=== PATIENT | female | born 1945 | race Caucasian/White ===

== ENCOUNTER → 2016-10-08 | Outpatient (CLI) | payer MEDICARE, BC | END | disposition home or self-care (01) | LOC: LABWHC1 08:23 | PROVIDERS: ATTEND Family Medicine | DX: E03.9 Hypothyroidism, unspecified (principal) | CPT/HCPCS: 36415; 84443 ==

== ENCOUNTER → 2017-07-30 | Outpatient (CLI) | payer MEDICARE, BC ==
--- NOTE | 2017-07-30 10:30 | FL ---
EXAMINATION TYPE: FL UGI air DATE OF EXAM: 07/30/2017 9:55 AM COMPARISON: NONE CLINICAL HISTORY: R10.13 epigastric pain Preliminary view of the abdomen reveals a normal bowel gas pattern. IVC filter is noted to be in plac e. CHART CHANGER shunt tubing is noted. Mild degenerative changes are noted of the thoracolumbar spine. Upper GI examination was performed according to the air contrast technique. Barium and effervescent crystal was swallowed without difficulty or delay. Esophageal peristalsis and motility are within normal limits. There is no evidence for esophagitis, intraluminal mass. Ther e is mild gastroesophageal reflux with small sliding-type hiatal hernia. The stomach has a normal bindu earance in terms of its size, shape and location. No gastric filling defects or ulcer craters are se en. The duodenal bulb and sweep are also free of intraluminal lesion or ulcer crater. IMPRESSION: There is mild gastroesophageal reflux with small sliding-type hiatal hernia.
--- NOTE | 2017-07-30 10:32 | US ---
EXAMINATION TYPE: US abdomen complete DATE OF EXAM: 07/30/2017 COMPARISON: Same day upper GI study CLINICAL HISTORY: R10.13 epigastric pain. Patient states she had a brain aneurism and has a shunt from her brain down through her abdomen. Susan ent poor historian about different procedures she has had done. EXAM MEASUREMENTS: Liver Length: 13.8 cm Gallbladder Wall: 0.1 cm CBD: 0.4 cm Spleen: Surgically absent Right Kidney: 8.8 x 4.0 x 4.7 cm Left Kidney: 10.4 x 4.6 x 5.1 cm Pancreas: Tail obscured by overlying bowel gas Liver: wnl Gallbladder: tortuous, with no stones or sludge identified Evidence for sonographic Garcia's sign: no CBD: wnl Spleen: surgically absent Right Kidney: measures slightly smaller Left Kidney: No hydronephrosis or masses seen Upper IVC: possible IVC filter with good flow surrounding Abd Aorta: there appears to be a aortic graft, all portions appear wnl The liver is homogenous. The visualized abdominal aorta are within normal limits. Distal portion may have graft in place. Intrahepatic IVC shows curvilinear density consistent with known IVC filter. Go od blood flow at site of filter is noted on color images. There is no evidence of cholelithiasis. C ommon bile duct is unremarkable. The visualized portions of the pancreas are homogenous. The spleen is nonvisualized suspected surgically absent. Kidneys are symmetric and free of hydronephrosis. No renal lesions are seen. IMPRESSION: No suspicious finding is seen to account for patient's symptoms.
== END | disposition home or self-care (01) ==
LOC: RADUSMAIN 07:59
PROVIDERS: ATTEND Family Medicine
DX: K44.9 Diaphragmatic hernia without obstruction or gangrene (principal); K21.9 Gastro-esophageal reflux disease without esophagitis
CPT/HCPCS: 74246; 76700

== ENCOUNTER → 2018-02-08 | Outpatient (CLI) | payer MEDICARE, BC ==
[2018-02-08 17:00] LABS: LDL Cholesterol,Calculated 145.2 mg/dL (0.0-131.0); VLDL Calculation 20.8 mg/dL (5.00-40.00)
== END | disposition home or self-care (01) ==
LOC: LABWHC1 08:43
PROVIDERS: ATTEND Nurse Practitioner Family
DX: E03.9 Hypothyroidism, unspecified (principal); Z13.220 Encounter for screening for lipoid disorders
CPT/HCPCS: 36415; 80061; 84443

== ENCOUNTER → 2018-04-13 | Outpatient (CLI) | payer MEDICARE, BC ==
--- NOTE | 2018-04-14 07:19 | US ---
EXAMINATION TYPE: US thyroid st tissue head/neck DATE OF EXAM: 04/13/2018 COMPARISON: Thyroid ultrasound August 30, 2014 CLINICAL HISTORY: E03.9 Hyperthyroidism, E04.1 Thyroid Nodule. Hypothyroidism per patient. On meds. No hx of biopsy GLAND SIZE: Right Lobe: 2.8 x 1.0 x 0.7 cm Overall Parenchyma: heterogenous Left Lobe: 2.3 x 1.1 x 0.7 cm Overall Parenchyma: heterogeneous Isthmus Thickness: 0.1 cm NODULES RIGHT: # of nodules measured on right: 0 LEFT: # of nodules measured on left: 0 ISTHMUS: # of nodules measured in the isthmus: 0 Bilateral neck scanned. Left lateral neck lymph node appearing lesion = 1.5 x 0.6 x 0.4 cm. There is redemonstration of heterogeneous small size thyroid without discrete nodule. Technologist in cidentally edmonds benign-appearing subcentimeter lymph node in the left neck. IMPRESSION: Overall stable findings, small size heterogeneous thyroid gland without discrete nodule.
== END | disposition home or self-care (01) ==
LOC: RADUSWWP 16:50
PROVIDERS: ATTEND Family Medicine
DX: E04.1 Nontoxic single thyroid nodule (principal); E03.9 Hypothyroidism, unspecified
CPT/HCPCS: 76536

== ENCOUNTER → 2018-05-09 | Outpatient (CLI) | payer MEDICARE, BC ==
--- NOTE | 2018-05-09 15:18 | BD ---
EXAMINATION TYPE: Axial Bone Density DATE OF EXAM: 05/09/2018 Comparison: Prior DEXA bone scan 2013. CLINICAL HISTORY: Postmenopausal female Height: 63.5 Weight: 128 FRAX RISK QUESTIONS: Alcohol (3 or more units per day): no Family History (Parent hip fracture): no Glucocorticoids (More than 3mos): no (Ex: prednisone, prednisolone, methylprednisolone, dexamethasone, and hydrocortisone). History of Fracture in Adulthood: yes Secondary Osteoporosis: 1. Type 1 Diabetes: no 2. Hyperthyroidism: unsure 3. Menopause before 45: no, 48 4. Malnutrition: no 5. Chronic liver disease: no Rheumatoid Arthritis: no Current Tobacco Use: no RISK FACTORS HISTORY OF: Family History of Osteoporosis: no, sister had osteopenia Active: yes Diet low in dairy products/other sources of calcium: no Postmenopausal woman: yes Take estrogen and/or progesterone medications: no Lost more than 2 inches in height since high school: states was about 5ft 5 & 1/2 inches at one time Frequent falls: no Poor Health: no Hyperparathyroidism: no Adrenal Insufficiency: no MEDICATIONS: Thyroid Medications: yes Which medication: Levoxyl How Long: over 10 years Osteoporosis Medications: not now Which medication: Prolia How Long: one dose Additional Medications: calcium Additional History: arthritis; shunt from head to abdomen; Meggan's EXAM MEASUREMENTS: Bone mineral densitometry was performed using the [employer] System. 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 Bone density decreased from prior . There remains increased fracture risk and therapy is usually indicated based on age. Re-Screen 1-2 years. NOTE: T-SCORE=SD OF THE YOUNG ADULT MEAN.
== END | disposition home or self-care (01) ==
LOC: RADBDWWP 13:18
PROVIDERS: ATTEND Family Medicine
DX: M81.0 Age-related osteoporosis without current pathological fracture (principal)
CPT/HCPCS: 77080

== ENCOUNTER → 2018-07-14 | Outpatient (CLI) | payer MEDICARE, BC | END | disposition home or self-care (01) | LOC: LABWHC1 10:20 | PROVIDERS: ATTEND Family Medicine | DX: E03.9 Hypothyroidism, unspecified (principal) | CPT/HCPCS: 36415; 84443 ==

== ENCOUNTER → 2018-12-21 | Outpatient (CLI) | payer MEDICARE, BC ==
--- NOTE | 2018-12-22 08:43 | MM ---
Reason for exam: screening (asymptomatic). Last mammogram was performed 3 years and 8 months ago. History: Patient is postmenopausal. Family history of breast cancer in sister at age 73. Physical Findings: A clinical breast exam by your physician is recommended on an annual basis and results should be correlated with mammographic findings. MG 3D Screening Mammo W/Cad Bilateral CC and MLO view(s) were taken. Prior study comparison: April 22, 2015, bilateral MG screening mammo w CAD. September 08, 2013, bilateral MG screening mammo w CAD. There are scattered fibroglandular densities. There is no discrete abnormality. No significant changes when compared with prior studies. ASSESSMENT: Negative, BI-RAD 1 RECOMMENDATION: Routine screening mammogram of both breasts in 1 year.
== END | disposition home or self-care (01) ==
LOC: RADMAMWWP 07:29
PROVIDERS: ATTEND Family Medicine
DX: Z12.31 Encounter for screening mammogram for malignant neoplasm of breast (principal)
CPT/HCPCS: 77063; 77067

== ENCOUNTER → 2019-01-03 | Outpatient (CLI) | payer MEDICARE, BC ==
--- NOTE | 2019-01-03 13:24 | CT ---
EXAMINATION TYPE: CT angio head neck DATE OF EXAM: 01/03/2019 COMPARISON: HISTORY: Subarachnoid hemorrhage CT DLP: 232 mGycm CONTRAST: Performed with IV Contrast, patient injected with 65 mL of Isovue 370. Combination Contrast CTA cervical carotids and [place] CTA cervical carotids with 3-D recons truction Contrast CTA of the cervical carotids was performed 3-D reconstruction imaging obtained at a separate workstation. Right carotid system: Mild plaque is seen of the right common carotid artery. There is moderate plaq ue also noted at the carotid bulb and proximal ICA. Estimated 40% diameter reduction right carotid s ystem. ECA is patent. Right vertebral artery appears unremarkable. Left carotid system: Mild plaque is seen of the left common carotid artery. There is moderate plaque also noted at the carotid bulb and proximal ICA. 50% diameter reduction noted ECA is patent. Left vertebral artery appears unremarkable. IMPRESSION: 1. 50% stenosis suspected left ICA proximally. 40% stenosis right ICA. CTA [place] with 3-D reconstruction Contrast CTA of the [place] was performed 3-D reconstruction imaging obtained at a separate workstation. Vertebrobasilar system as well as intracranial portions of the internal carotid arteries and their ma ozzie tributaries are patent. Small 3 mm aneurysm difficult to exclude right MCA. No additional aneurys mal dilatation identified. Please note MRI provides greater sensitivity and specificity. Visualized brain demonstrates a right-sided shunt catheter with the distal tip within the left lateral ventricle . Contrast limits evaluation for possible subarachnoid hemorrhage. IMPRESSION: 1. I cannot exclude small right-sided MCA aneurysm measuring approximately 3 mm.
== END | disposition home or self-care (01) ==
LOC: RADCTMAIN 07:59
PROVIDERS: ATTEND Neurological Surgery
DX: I60.9 Nontraumatic subarachnoid hemorrhage, unspecified (principal)
CPT/HCPCS: 82565; 84520; 70496; 70498; 36415; Q9967

== ENCOUNTER → 2019-05-25 | Outpatient (CLI) | payer MEDICARE, BC ==
--- NOTE | 2019-05-25 09:28 | US ---
EXAMINATION TYPE: US abdomen complete DATE OF EXAM: 05/25/2019 COMPARISON: US 07/30/2017 CLINICAL HISTORY: 73-year-old female R10.811 Right upper quadrant abdominal tenderness. Intermittent RUQ pain x couple months, history of spleen removed, patient states she believes she has a filter in her IVC. TECHNIQUE: Multiple sonographic images of the abdomen are obtained. FINDINGS: EXAM MEASUREMENTS: Liver Length: 12.2 cm Gallbladder Wall: 0.1 cm CBD: 0.5 cm Right Kidney: 9.0 x 3.4 x 3.9 cm Left Kidney: 9.8 x 4.6 x 5.1 cm Pancreas: No gross abnormality. Liver: Normal size. Overall homogeneous appearance without focal lesion. Gallbladder: No abnormal distention, wall thickening, pericholecystic fluid, or shadowing calculi. Evidence for sonographic Garcia's sign: no CBD: visualized portions wnl, limited by overlying bowel gas Spleen: surgically absent Right Kidney: wnl Left Kidney: wnl Upper IVC: IVC filter seen Abd Aorta: wnl IMPRESSION: 1. Status post splenectomy. 2. IVC filter visualized. 3. Otherwise, unremarkable sonographic examination of the abdomen.
--- NOTE | 2019-05-25 10:45 | FL ---
EXAMINATION: Upper GI examination DATE: 05/25/2019 CLINICAL INDICATION: 73-year-old female with epigastric and right upper quadrant pain/tenderness. COMPARISON: 07/30/2017 Total Fluoroscopy Time: 2 minutes 3 seconds Total images: 31 FINDINGS: The esophagus has a normal course, caliber, and mucosa. Mild tertiary peristaltic waves are demonstra fabrizio and while the patient is prone, there is an initial delay in clearance from the esophagus. Subseq uent secondary waves managed to clear the esophagus adequately. There is a tiny sliding hiatal hernia. Gastroesophageal reflux could not be elicited during the cours e of the exam. The stomach and duodenum are free of any persistent filling defect and demonstrate a normal mucosal p attern. IVC filter and what appears to be a COMPONENT ASSEMBLER SUPERVISOR shunt catheter are demonstrated. IMPRESSION: Tiny sliding hiatal hernia. Only mild disordered tertiary peristaltic contractions in the esophagus c ompatible with age-related change. No stricture, suspicious filling defect, or mucosal lesion seen wi thin the esophagus, stomach, or duodenum.
== END | disposition home or self-care (01) ==
LOC: RADUSWWP 07:02
PROVIDERS: ATTEND Family Medicine
DX: K44.9 Diaphragmatic hernia without obstruction or gangrene (principal); R10.13 Epigastric pain; Z90.81 Acquired absence of spleen; Z95.828 Presence of other vascular implants and grafts
CPT/HCPCS: 74246; 76700

== ENCOUNTER → 2020-02-09 | Outpatient (CLI) | payer MEDICARE, BC ==
--- NOTE | 2020-02-11 23:00 | CT ---
EXAMINATION TYPE: CT angio head neck DATE OF EXAM: 02/09/2020 HISTORY: Nontraumatic subarachnoid hemorrhage, shunt F/U COMPARISON: CTA head and neck 01/03/2019 CT DLP: 264.2 mGycm. Automated Exposure Control for Dose Reduction was Utilized. TECHNIQUE: CTA scan of the neck is performed with IV Contrast, patient injected with 65 mL of Isovue 370, axial images are obtained, coronal and sagittal reformatted images are reviewed. Three-D recons tructed images are created on an independent workstation and reviewed. Stenosis calculated utilizing NASCET criteria. FINDINGS: Carotid/Vascular Structures: Left vertebral artery directly off the aortic arch. Proximal left subcla vian artery stenosis approaches 50%. No hemodynamically significant stenosis of the bilateral carotid arteries. The left distal internal carotid artery demonstrates a medial 6 x 5 x 9 mm (AP, transverse , and craniocaudal) aneurysm with internal thrombus (4:63-67). The right vertebral artery is diminuti ve. Cervical of [place]: Vertebral basilar system is left dominant. Posterior cerebral vasculature is unre markable. The previously questioned aneurysm of the right MCA is not visualized on current exam. No e vidence of aneurysm, hemodynamically significant stenosis, or occlusion of the arteries of the head. Contrast limits evaluation for possible subarachnoid hemorrhage. Other: Right-sided ventricular peritoneal shunt catheter with distal tip in the left lateral ventricl e. No ventriculomegaly. Paranasal sinuses and mastoid air cells are clear. IMPRESSION: 1. Right-sided ventriculoperitoneal shunt catheter with distal tip in the left lateral ventricle. No ventriculomegaly. 2. No evidence of aneurysm, hemodynamically significant stenosis, or occlusion of the [place] of [place] s. 3. 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 Retrospecti vely this finding is likely unchanged versus 01/03/2019. 4. No hemodynamically significant stenosis of the carotid arteries. 5. Stenosis of the left proximal subclavian artery approaches 50%.
== END | disposition home or self-care (01) ==
LOC: RADCTMAIN 13:56
PROVIDERS: ATTEND Neurological Surgery
DX: I65.02 Occlusion and stenosis of left vertebral artery (principal); I67.1 Cerebral aneurysm, nonruptured; Z98.2 Presence of cerebrospinal fluid drainage device
CPT/HCPCS: 82565; 84520; 70496; 70498; 36415; Q9967

== ENCOUNTER → 2020-04-09 | Outpatient (CLI) | payer MEDICARE, BC ==
--- NOTE | 2020-04-10 15:01 | MM ---
Reason for exam: screening (asymptomatic). Last mammogram was performed 1 year and 4 months ago. History: Patient is postmenopausal. Family history of breast cancer in sister at age 73. Excisional biopsy of the right breast, 1975. Took estrogen beginning at age 48. Took progesterone beginning at age 48. Physical Findings: A clinical breast exam by your physician is recommended on an annual basis and results should be correlated with mammographic findings. MG 3D Screening Mammo W/Cad Bilateral CC and MLO view(s) were taken. Prior study comparison: December 21, 2018, bilateral MG 3d screening mammo w/cad. April 22, 2015, bilateral MG screening mammo w CAD. There are scattered fibroglandular densities. There is no discrete abnormality. ASSESSMENT: Negative, BI-RAD 1 RECOMMENDATION: Routine screening mammogram of both breasts in 1 year.
== END | disposition home or self-care (01) ==
LOC: RADMAMWWP 15:14
PROVIDERS: ATTEND Family Medicine
DX: Z12.31 Encounter for screening mammogram for malignant neoplasm of breast (principal)
CPT/HCPCS: 77063; 77067

== ENCOUNTER → 2020-05-16 | Outpatient (CLI) | payer MEDICARE, BC ==
[2020-05-16 14:46] LABS: African American GFR (CKD) 73.5 (60.0-200.0); Albumin 4.7 g/dL (3.80-4.90); Albumin/Globulin Ratio 2.35 (1.60-3.17); Anion Gap 8.1 mmol/L (4.00-12.00); BUN/Creat Ratio 18.89 Ratio (12.00-20.00); Calcium 9.3 mg/dL (8.7-10.3); Carbon Dioxide 27.9 mmol/L (21.6-31.8); Chol/HDL Ratio 3.81; LDL Cholesterol,Calculated 126.8 mg/dL (0.0-131.0); Non-African American GFR(CKD) 63.4 (60.0-200.0); Potassium 4.9 mmol/L (3.5-5.5); Total Bilirubin 0.2 mg/dL (0.2-1.2); Total Protein 6.7 g/dL (6.2-8.2); VLDL Calculation 25.2 mg/dL (5.00-40.00)
[2020-05-16 14:50] LABS: Basophils # (A) 0.13 X 10*3/uL (0.00-0.10); Basophils % (A) 1.6 %; Eosinophils % (A) 5.1 %; HCT 41.2 % (37.2-46.3); HGB 13.1 g/dL (12.0-15.0); Lymphocytes # (A) 2.35 X 10*3/uL (0.90-5.00); Lymphocytes % (A) 29.7 %; MCH 32.8 pg (27.0-32.0); MCHC 31.8 g/dL (32.0-37.0); Mean Platelet Volume 11.6 fL (9.5-12.2); Monocytes # (A) 0.88 X 10*3/uL (0.20-1.00); Monocytes % (A) 11.1 %; Neutrophils # (A) 4.15 X 10*3/uL (1.80-7.70); Neutrophils % (A) 52.4 %; Platelet Count 314 X 10*3/uL (140-440); RDW 12.9 % (11.5-14.5); WBC 7.92 X 10*3/uL (4.50-10.00)
== END | disposition home or self-care (01) ==
LOC: LABWHC1 09:23
PROVIDERS: ATTEND Family Medicine
DX: E03.9 Hypothyroidism, unspecified (principal); E78.2 Mixed hyperlipidemia; R53.83 Other fatigue
CPT/HCPCS: 36415; 80053; 80061; 84443; 85025

== ENCOUNTER 2020-06-03 16:35 | Emergency (ER) | payer MEDICARE, BC ==
[2020-06-03 16:40] VITALS: BP 134/68; PULSE 93; RESP 18; TEMP 98.9
[2020-06-03] MEDS ORDERED: HYDROcodone/APAP 5-325MG 1 EACH TAB PO STA (17:00)
--- NOTE | 2020-06-03 17:19 | ED ---
General Adult HPI - General Chief complaint: Back Pain/Injury Stated complaint: fall, rib pain Time Seen by Provider: 06/03/20 16:47 Source: patient Mode of arrival: ambulatory Limitations: no limitations - History of Present Illness Initial comments: Patient is a 74-year-old female presenting to the emergency Department with complaints of right rib pain after she fell and hit a chair at approximately 10:30 this morning. Patient states she was standing on a wood chair when her foot slipped and she fell hitting the right side of her ribs on the front part of the wood chair. In having some increased pain in the right ribs, increases with bending over or twisting. She states she tried some Tylenol at home without any changes. She denies any trouble breathing. She denies hitting her head, she is not on blood thinners. She has no further complaints at this time. Upon arrival to the ER, her vitals are stable. - Related Data Previous Rx's Medication Instructions Recorded HYDROcodone/APAP 5-325MG [[place] 1 tab PO Q6HR PRN 3 Days #12 tab 06/03/20 5-325] Allergies Allergy/AdvReac Type Severity Reaction Status Date / Time latex AdvReac Itching Verified 06/03/20 17:15 simvastatin [From Zocor] AdvReac Unknown Verified 06/03/20 17:15 tramadol AdvReac Nausea & Verified 06/03/20 17:15 Vomiting Review of Systems ROS Statement: Those systems with pertinent positive or pertinent negative responses have been documented in the HPI. ROS Other: All systems not noted in ROS Statement are negative. Past Medical History History of Any Multi-Drug Resistant Organisms: None Reported Additional Past Surgical History / Comment(s): 2016 brain aneurysm Smoking Status: Never smoker Past Alcohol Use History: None Reported Past Drug Use History: None Reported General Exam - General Exam Comments Initial Comments: GENERAL: Patient is well-developed and well-nourished. Patient is nontoxic and in no acute distress. HEAD: Atraumatic, normocephalic. EYES: Pupils equal round and reactive to light, extraocular movements intact, sclera anicteric, conjunctiva are normal. Eyelids were unremarkable. ENT: TMs normal, nares patent, oropharynx clear without exudates. Moist mucous membranes. NECK: Normal range of motion, supple without lymphadenopathy or JVD. LUNGS: Unlabored respirations. Breath sounds clear to auscultation bilaterally and equal. No wheezes rales or rhonchi. HEART: Regular rate and rhythm without murmurs, rubs or gallops. ABDOMEN: Soft, nontender, normoactive bowel sounds. No guarding, no rebound. No masses appreciated. : Deferred MUSCULOSKELETAL: Normal extremities with adequate strength and normal range of motion, no pitting or edema. No clubbing or cyanosis. Patient has pain with palpation of the lateral to anterior right middle ribs, there is some mild bruising present underneath the right breast. NEUROLOGICAL: Patient is alert and oriented x 3. Motor and sensory are also intact. Cranial nerves II through XII grossly intact. Symmetrical smile. Normal speech, normal gait. PSYCH: Normal mood, normal affect. SKIN: Warm, Dry, normal turgor, no rashes or lesions noted. Limitations: no limitations Course Vital Signs 06/03/20 16:36 Temperature 98.9 F Pulse Rate 93 Respiratory 18 Rate Blood Pressure 134/68 O2 Sat by Pulse 95 Oximetry Medical Decision Making - Medical Decision Making Patient is a 74-year-old female here for right rib pain after she slipped off a wood chair and hit her right ribs on the side of the chair. There was no other injuries from this fall, she did not hit her head. X-rays of the chest and right-sided the ribs show no acute fractures dislocations, feeling that could be a small fracture line on the 7th or 8th anterior rib. Regardless, I discussed with patient and deep breathing about 5 times each hour while she was awake to prevent pneumonia. I will give her a prescription for [place] for pain control. I recommended ice to the areas well. Patient is stable for discharge. Patient is in agreement with this plan of care. Return parameters were discussed with the patient and they verbalized understanding. Case discussed with Dr. Beach. Disposition Clinical Impression: Contusion of rib on right side Disposition: HOME SELF-CARE Condition: Stable Instructions (If sedation given, give patient instructions): Rib Contusion (ED) Additional Instructions: Please return to the Emergency Department if symptoms worsen or any other concerns. Recommend deep breathing about 5 breaths each hour while you're awake to help prevent pneumonia. May use heat and/or ice to the area, Tylenol or Motrin for pain control. May take the [place] for more severe pain. Follow-up with your physician in 1-3 days. Prescriptions: HYDROcodone/APAP 5-325MG [[place] 5-325] 1 tab PO Q6HR PRN 3 Days #12 tab PRN Reason: Pain Is patient prescribed a controlled substance at d/c from ED?: Yes When asked, does pt state using other controlled substances?: No If prescribed controlled substance>3 days was MAPS reviewed?: Prescribed <3 Days If opioid is for acute pain is fill amount 7 days or less?: Yes If Rx opioid, was Start Talking consent form obtained?: Yes Referrals: Jessica Chaparro DO [Primary Care Provider] - 1-2 days
--- NOTE | 2020-06-03 18:13 | XR ---
EXAMINATION TYPE: XR ribs RT w pa chest xray DATE OF EXAM: 06/03/2020 COMPARISON: NONE HISTORY: Fall. Chest pain. TECHNIQUE: 5 views FINDINGS: Heart and mediastinum are within normal limits. There is plate with screws fixing the proxi mal left humerus. There is ventriculoperitoneal shunt catheter noted. There is inferior vena cava dimple ter. Lungs are clear of consolidation. There is no heart failure. There is no pleural effusion or pne umothorax. I see no evidence of a rib fracture. IMPRESSION: Negative right rib exam. No fracture seen. No active cardiopulmonary disease.
== END 2020-06-03 18:36 | disposition home or self-care (01) ==
LOC: EC 16:35
DX: S20.211A Contusion of right front wall of thorax, initial encounter (principal); W01.190A Fall on same level from slipping, tripping and stumbling with subsequent striking against furniture, initial encounter
CPT/HCPCS: 77080; 99283

== ENCOUNTER → 2020-06-03 | Outpatient (CLI) | payer MEDICARE, BC ==
--- NOTE | 2020-06-03 19:28 | BD ---
EXAMINATION TYPE: Axial Bone Density DATE OF EXAM: 06/03/2020 COMPARISON: 05/09/2018 CLINICAL HISTORY: Postmenopausal screening Height: 63 IN Weight: 140 LBS RISK FACTORS HISTORY OF: Active: YES Diet low in dairy products/other sources of calcium: YES Postmenopausal woman: AGE 48 Take estrogen and/or progesterone medications: NOT NOW How long: TOOK FOR 10 YEARS Lost more than 2 inches in height since high school: YES 04/06" MEDICATIONS: Thyroid Medications: YES Which medication: LEVOXYL How Lon+ YEARS Osteoporosis Medications: NOT NOW Which medication: PROLIA How Long: DID 1 TIME Additional Medications: CALCIUM, VIT D, LEVOXYL, PRAVASTATIN, EXAM MEASUREMENTS: Bone mineral densitometry was performed using the [employer] System. Bone mineral density as measured about the Lumbar spine is: ----- L1-L4(G/cm2): 1.114 T Score Values are as follows: ----- L2: -0.8 ----- L3: -0.2 ----- L4: 0.2 ----- L1-L4: -0.5 Bone mineral density has: Decreased -2.5% since study of: 05/09/2018 Bone mineral density about the R hip (g/cm2): 0.671 Bone mineral density about the L hip (g/cm2): 0.684 T Score values are as follows: -----R Neck: -2.6 -----L Neck: -2.5 -----R Total: -3.2 -----L Total: -3.1 Bone mineral density has: Decreased -1.9% since study of: 05/09/2018 IMPRESSION: Osteoporosis (T Score less than -2.5). There is increased fracture risk and therapy is usually indicated based on age. Re-Screen 1-2 years. NOTE: T-SCORE=SD OF THE YOUNG ADULT MEAN.
== END ==
LOC: RADBDWWP 16:00
PROVIDERS: ATTEND Family Medicine
DX: M81.0 Age-related osteoporosis without current pathological fracture (principal); Z78.0 Asymptomatic menopausal state
CPT/HCPCS: 77080

== ENCOUNTER → 2020-12-04 | Outpatient (CLI) | payer MEDICARE, BC ==
--- NOTE | 2020-12-04 15:54 | CT ---
EXAMINATION TYPE: CT brain wo con DATE OF EXAM: 12/04/2020 COMPARISON: None at this location INDICATION: Patient complains of lumps behind left ear. Headache. DLP: 1029.9 mGycm, Automated exposure control for dose reduction was used. CONTRAST: None CT of the brain is performed utilizing 3 mm thick sections through the posterior fossa and 3 mm thick sections through the remaining calvarium. Study is performed within 24 hours of arrival to the hosp ital. No abnormal hyperdensity is present to suggest an acute intracranial hemorrhage. No mass lesion is evident. Beam hardening artifact from coiling in the right foramen magnum is presen t. No acute infarcts are evident. Chronic appearing periventricular white matter hypodensity is present, likely on the basis of chronic white matter ischemic changes. There is a shunt catheter present with the tip in the left lateral ventricle region. This exits on th e right posterior parietal region. No ventricular dilatation or temporal horn dilatation is evident. No hydrocephalus is evident. No suspicious nodules or posterior to the left auricular region. Ventricles and sulci are appropriate for the patient age. Paranasal sinuses and mastoid air cells within the [id number] are clear. IMPRESSIONS: 1. No hydrocephalus. 2. Chronic appearing periventricular white matter changes are present, greater on the right.
== END | disposition home or self-care (01) ==
LOC: RADCTMAIN 11:54
PROVIDERS: ATTEND Neurological Surgery
DX: R93.0 Abnormal findings on diagnostic imaging of skull and head, not elsewhere classified (principal)
CPT/HCPCS: 70450

== ENCOUNTER → 2021-03-13 | Outpatient (CLI) | payer MEDICARE, BC ==
--- NOTE | 2021-03-14 12:01 | CT ---
EXAMINATION TYPE: CT brain wo con DATE OF EXAM: 03/14/2021 COMPARISON: 12/04/2020 HISTORY: follow up subarachnoid hemorrhage CT DLP: [address] of the brain was performed. The ventricles, basal cisterns and sulci overlying the cerebral convexities demonstrate mild enlargem ent. Right-sided shunt catheter is unchanged in position. No hydrocephalus seen. There is no evidence for intracranial hemorrhage or sulcal effacement. There is decreased attenuation about the periventricular white matter and deep white matter of both c erebral hemispheres, compatible with chronic small vessel ischemia. Differential diagnosis does inclu de demyelination. No mass effects are seen.No midline shift. Osseous calvarium is intact. If symptoms persist consider MRI. IMPRESSION: 1. Age related atrophic and chronic small vessel ischemic change without acute intracranial process s een at this time.
--- NOTE | 2021-03-14 12:13 | CT ---
EXAMINATION TYPE: CT angio head neck DATE OF EXAM: 03/14/2021 COMPARISON: 02/09/2020 HISTORY: follow up subarachnoid hemorrage CT DLP: 257.1 mGycm CONTRAST: Performed with IV Contrast, patient injected with 65 mL of Isovue 370. Combination Contrast CTA cervical carotids and [place] of [place] CTA cervical carotids with 3-D recons truction Contrast CTA of the cervical carotids was performed 3-D reconstruction imaging obtained at a separate workstation. Right carotid system: Mild plaque is seen of the right common carotid artery. There is mild plaque a lso noted at the carotid bulb and proximal ICA. No significant diameter reduction. ECA is patent. Right vertebral artery appears unremarkable. Left carotid system: Mild plaque is seen of the left common carotid artery. There is moderate calcif ied plaque also noted at the carotid bulb and proximal ICA. No significant diameter reduction. 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 ECA is patent. Left vertebral artery appears unremarkable. IMPRESSION: 1. No significant diameter reduction to account for the patient's symptoms. CTA [place] with 3-D reconstruction Contrast CTA of the [place] was performed 3-D reconstruction imaging obtained at a separate workstation. Vertebrobasilar system as well as intracranial portions of the internal carotid arteries and their ma ozzie tributaries are patent. 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 Please note MRI provides greater sensitivity and specificity. Visualized brain appears grossly unremarkable. IMPRESSION: 1. 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 NASCET criteria was used in interpretation of this exam?
== END | disposition home or self-care (01) ==
LOC: RADCTMAIN 17:31
PROVIDERS: ATTEND Neurological Surgery
DX: I60.9 Nontraumatic subarachnoid hemorrhage, unspecified (principal); G91.9 Hydrocephalus, unspecified; Z98.2 Presence of cerebrospinal fluid drainage device
CPT/HCPCS: 36415; 70450; 70496; 70498; 82565; 84520

== ENCOUNTER → 2021-06-03 | Outpatient (CLI) | payer MEDICARE, OTHER ==
[2021-06-03 14:40] LABS: Basophils # (A) 0.12 X 10*3/uL (0.00-0.10); Basophils % (A) 1.2 %; Eosinophils # (A) 0.42 X 10*3/uL (0.04-0.35); Eosinophils % (A) 4.3 %; HCT 42.7 % (37.2-46.3); HGB 13.4 g/dL (12.0-15.0); Immature Grans, Automated 0.2 %; Lymphocytes # (A) 2.56 X 10*3/uL (0.90-5.00); Lymphocytes % (A) 26.5 %; MCH 32.7 pg (27.0-32.0); MCHC 31.4 g/dL (32.0-37.0); MCV 104.1 fL (80.0-97.0); Mean Platelet Volume 11.9 fL (9.5-12.2); Monocytes # (A) 0.94 X 10*3/uL (0.20-1.00); Monocytes % (A) 9.7 %; NRBC Per 100 WBC 0 /100 WBCS (0.0-0.0); Neutrophils # (A) 5.61 X 10*3/uL (1.80-7.70); Neutrophils % (A) 58.1 %; Platelet Count 278 X 10*3/uL (140-440); RDW 13.3 % (11.5-14.5); WBC 9.67 X 10*3/uL (4.50-10.00)
[2021-06-03 16:41] LABS: ALT 16 U/L (8-44); AST 18 U/L (13-35); African American GFR (CKD) 65.1 (60.0-200.0); Albumin 4.8 g/dL (3.8-4.9); Albumin/Globulin Ratio 1.96 (1.60-3.17); Alkaline Phosphatase 73 U/L (41-126); BUN/Creat Ratio 24.97 Ratio (12.00-20.00); Blood Urea Nitrogen 24.7 mg/dL (9.0-27.0); Calcium 10.2 mg/dL (8.7-10.3); Carbon Dioxide 27.1 mmol/L (20.0-27.5); Chloride 102 mmol/L (96-109); Chol/HDL Ratio 5.17 Ratio; Globulin 2.5 g/dL (1.6-3.3); Glucose 89 mg/dL (70-110); LDL Cholesterol,Calculated 205.7 mg/dL (0.0-131.0); Non-African American GFR(CKD) 56.2 (60.0-200.0); Potassium 5.1 mmol/L (3.5-5.5); Sodium 144 mmol/L (135-145); Total Protein 7.3 g/dL (6.2-8.2)
== END | disposition home or self-care (01) ==
LOC: LABWHC1 10:26
PROVIDERS: ATTEND Family Medicine
DX: G89.4 Chronic pain syndrome (principal); E78.2 Mixed hyperlipidemia; E03.9 Hypothyroidism, unspecified
CPT/HCPCS: 36415; 80053; 80061; 84443; 85025

== ENCOUNTER → 2022-07-07 | Outpatient (CLI) | payer MEDICARE ==
[2022-07-07 08:30] LABS: Basophils # (A) 0.1 k/uL (0-0.2); Basophils % (A) 1 %; Eosinophils # (A) 0.5 k/uL (0-0.7); Eosinophils % (A) 7 %; HCT 43.8 % (34.0-46.0); HGB 14.7 gm/dL (11.4-16.0); Lymphocytes # (A) 1.9 k/uL (1.0-4.8); Lymphocytes % (A) 29 %; MCHC 33.6 g/dL (31.0-37.0); MCV 101.3 fL (80.0-100.0); Mean Platelet Volume 9.3; Monocytes # (A) 0.5 k/uL (0-1.0); Monocytes % (A) 8 %; Neutrophils # (A) 3.5 k/uL (1.3-7.7); Neutrophils % (A) 53 %; Platelet Count 273 k/uL (150-450); RBC 4.33 m/uL (3.80-5.40); RDW 12.6 % (11.5-15.5); WBC 6.7 k/uL (3.8-10.6)
[2022-07-07 15:56] LABS: Chol/HDL Ratio 4.74 Ratio; LDL Cholesterol,Calculated 220.6 mg/dL (0.0-131.0)
[2022-07-07 16:25] LABS: ALT 17 U/L (8-44); AST 33 U/L (13-35); African American GFR (CKD) 58.2 (60.0-200.0); Albumin 4.4 g/dL (3.8-4.9); Albumin/Globulin Ratio 1.58 (1.60-3.17); Alkaline Phosphatase 85 U/L (41-126); BUN/Creat Ratio 16.39 Ratio (12.00-20.00); Blood Urea Nitrogen 17.7 mg/dL (9.0-27.0); Calcium 9.5 mg/dL (8.7-10.3); Chloride 102 mmol/L (96-109); Globulin 2.8 g/dL (1.6-3.3); Glucose 87 mg/dL (70-110); Non-African American GFR(CKD) 50.2 (60.0-200.0); Potassium 5.3 mmol/L (3.5-5.5); Sodium 138 mmol/L (135-145); Total Protein 7.2 g/dL (6.2-8.2)
--- NOTE | 2022-07-08 08:27 | MM ---
Reason for Exam: Screening (asymptomatic). Last mammogram was performed 1 year(s) and 2 month(s) ago. Patient History: Menarche at age 12. First Full-Term at age 20. Postmenopausal. Estrogen, from age 48 until age 58. Progesterone, from age 48 until age 58. 1976, Excisional Biopsy on the Right side. Sister had breast cancer, age 73. Risk Values: Yumi 5 year model risk: 4.3%. NCI Lifetime model risk: 9.0%. Prior Study Comparison: 12/21/2018 Bilateral Screening Mammogram, [facility]. 04/09/2020 Bilateral Screening Mammogram, [facility]. 05/20/2021 Bilateral Screening Mammogram, [facility]. Tissue Density: There are scattered fibroglandular densities. Findings: Analyzed By CAD. Portion of tubing or Shunt catheter in the posterior inner right breast is redemonstrated. There is no suspicious group of microcalcifications or new suspicious mass in either breast. Overall Assessment: Benign, BI-RAD 2 Management: Screening Mammogram of both breasts in 1 year. A clinical breast exam by your physician is recommended on an annual basis and results should be correlated with mammographic findings. Electronically signed and approved by: Faheem Mckeon M.D.
== END | disposition home or self-care (01) ==
LOC: RADMAMWWP 07:16
PROVIDERS: ATTEND Family Medicine
DX: Z12.31 Encounter for screening mammogram for malignant neoplasm of breast (principal); G89.4 Chronic pain syndrome; E78.2 Mixed hyperlipidemia; E03.9 Hypothyroidism, unspecified; Z78.0 Asymptomatic menopausal state; Z80.3 Family history of malignant neoplasm of breast
CPT/HCPCS: 77063; 77067; 80053; 80061; 84439; 84443; 85025

== ENCOUNTER → 2023-07-09 | Outpatient (CLI) | payer MEDICARE ==
--- NOTE | 2023-07-12 12:24 | MM ---
Reason for Exam: Screening (asymptomatic). Last screening mammogram was performed 12 month(s) ago. Patient History: Menarche at age 12. First Full-Term at age 20. Postmenopausal. Estrogen, from age 48 until age 58. Progesterone, from age 48 until age 58. 1976, Excisional Biopsy on the Right side. Sister had breast cancer, age 73. Risk Values: Yumi 5 year model risk: 4.2%. NCI Lifetime model risk: 8.5%. Prior Study Comparison: 04/09/2020 Bilateral Screening Mammogram, [facility]. 05/20/2021 Bilateral Screening Mammogram, [facility]. 07/07/2022 Bilateral MG 3D screening mammo w/cad, [facility]. Tissue Density: There are scattered areas of fibroglandular density. Findings: Analyzed By CAD. There is no suspicious group of microcalcifications or new suspicious mass in either breast. Overall Assessment: Negative, BI-RAD 1 Management: Screening Mammogram of both breasts in 1 year. . Patient should continue monthly self-breast exams. A clinical breast exam by your physician is recommended on an annual basis. This exam should not preclude additional follow-up of suspicious palpable abnormalities. Note on Yumi scores and lifetime risk: 1. A Yumi score greater than 3% is considered moderate risk. If this is the case, consider specialist referral to assess eligibility for a risk reducing agent. 2. If overall lifetime risk for the development of breast cancer is 20% or higher, the patient may qualify for future screening with alternating mammogram and breast MRI. Electronically signed and approved by: Jin Stevens M.D. Radiologis
== END | disposition home or self-care (01) ==
LOC: RADMAMWWP 07:48
PROVIDERS: ATTEND Family Medicine
DX: Z12.31 Encounter for screening mammogram for malignant neoplasm of breast (principal); Z80.3 Family history of malignant neoplasm of breast; Z78.0 Asymptomatic menopausal state
CPT/HCPCS: 77063; 77067

== ENCOUNTER → 2023-12-16 | Outpatient (CLI) | payer MEDICARE ==
[2023-12-16 08:53] LABS: Basophils # (A) 0.1 k/uL (0-0.2); Basophils % (A) 2 %; Eosinophils # (A) 0.5 k/uL (0-0.7); Eosinophils % (A) 7 %; HCT 40.5 % (34.0-46.0); Hypochromasia Slight; Lymphocytes # (A) 1.8 k/uL (1.0-4.8); Lymphocytes % (A) 25 %; MCH 32.9 pg (25.0-35.0); MCV 102.6 fL (80.0-100.0); Macrocytosis Slight; Mean Platelet Volume 8.8; Monocytes # (A) 0.7 k/uL (0-1.0); Monocytes % (A) 10 %; Neutrophils # (A) 3.9 k/uL (1.3-7.7); Neutrophils % (A) 54 %; Platelet Count 295 k/uL (150-450); RBC 3.95 m/uL (3.80-5.40); RDW 12.5 % (11.5-15.5); WBC 7.3 k/uL (3.8-10.6)
[2023-12-16 09:14] LABS: ALT 16 U/L (4-34); AST 28 U/L (14-36); African American GFR (CKD) 84 (>60 ml/min/1.73 sqM); Albumin 4.1 g/dL (3.5-5.0); Alkaline Phosphatase 98 U/L (38-126); Anion Gap 5 mmol/L; Blood Urea Nitrogen 14 mg/dL (7-17); Calcium 9.4 mg/dL (8.4-10.2); Carbon Dioxide 34 mmol/L (22-30); Chloride 102 mmol/L (98-107); Glucose 88 mg/dL (74-99); Non-African American GFR(CKD) 73 (>60 ml/min/1.73 sqM); Potassium 4.6 mmol/L (3.5-5.1); Sodium 141 mmol/L (137-145); Total Bilirubin 0.5 mg/dL (0.2-1.3); Total Protein 6.8 g/dL (6.3-8.2)
--- NOTE | 2023-12-16 11:37 | BD ---
EXAMINATION TYPE: Axial Bone Density DATE OF EXAM: 12/16/2023 CLINICAL HISTORY: 78 years old Female. ICD-10 CODE: M81.0 AGE-RELATED OSTEOPOROSIS Height: 63.5" Weight: 149lbs FRAX RISK QUESTIONS: Alcohol (3 or more units per day): No Family History (Parent hip fracture): No Glucocorticoids (More than 3mos): No (Ex: prednisone, prednisolone, methylprednisolone, dexamethasone, and hydrocortisone). History of Fracture in Adulthood: Yes Secondary Osteoporosis: 1. Type 1 Diabetes: No 2. Hyperthyroidism: No 3. Menopause before 45: No 4. Malnutrition: No 5. Chronic liver disease: No Rheumatoid Arthritis: No Current Tobacco Use: No RISK FACTORS HISTORY OF: Hip Fracture (Right/Left): No Spine Fracture: No History of Wrist Fracture: No Surgery to Spine/Hip(right/left)/Wrist (right/left): No MEDICATIONS: Thyroid Medications: Yes Which medication: Levo How Long: Many years Osteoporosis Medications: No EXAM MEASUREMENTS: Bone mineral densitometry was performed using the [employer] System. Bone mineral density as measured about the Lumbar spine is: ----- L1-L4(G/cm2): 1.150 T Score Values are as follows: ----- L1: -1.5 ----- L2: -0.9 ----- L3: 0.7 ----- L4: 0.2 ----- L1-L4: -0.2 Z Score Values are as follows: ----- L1: 0.2 ----- L2: 0.8 ----- L3: 2.4 ----- L4: 1.9 ----- L1-L4: 1.4 Bone mineral density has: increased 3.2% since study of: 06/03/2020 Bone mineral density about the R hip (g/cm2): 0.634 Bone mineral density about the L hip (g/cm2): 0.593 T Score values are as follows: -----R Neck: -1.7 -----L Neck: -2.6 -----R Total: -3.0 -----L Total: -3.3 Z Score values are as follows: -----R Neck: 0.3 -----L Neck: -0.6 -----R Total: -1.2 -----L Total: -1.5 Bone mineral density has: remained the same 0.0% since study of: 06/03/2020 FRAX%s: The graph provided illustrates a 27.3% chance for a major osteoporotic fx and a 8.9% chance f or the hips probability for fx in 10 years time. IMPRESSION: Osteoporosis (T Score less than -2.5). There is increased fracture risk and therapy is usually indicated based on age. Re-Screen 1-2 years. NOTE: T-SCORE=SD OF THE YOUNG ADULT MEAN.
[2023-12-16 15:23] LABS: Chol/HDL Ratio 4.33 Ratio; LDL Cholesterol,Calculated 121.1 mg/dL (0.0-131.0)
== END | disposition home or self-care (01) ==
LOC: RADBDWWP 07:30
PROVIDERS: ATTEND Family Medicine
DX: M81.0 Age-related osteoporosis without current pathological fracture (principal); E78.2 Mixed hyperlipidemia; M85.89 Other specified disorders of bone density and structure, multiple sites
CPT/HCPCS: 77080; 80053; 80061; 84443; 85025

== ENCOUNTER 2024-03-29 07:15 | Emergency (ER) | payer MEDICARE ==
[2024-03-29 07:19] VITALS: RESP 20
--- NOTE | 2024-03-29 07:45 | ED ---
URI HPI - General Chief Complaint: Upper Respiratory Infection Stated Complaint: Body Aches, Headache Time Seen by Provider: 03/29/24 07:20 Source: patient, RN notes reviewed Mode of arrival: ambulatory Limitations: no limitations - History of Present Illness Initial Comments: 78-year-old female with a history of hypothyroidism presenting to the emergency department with URI symptoms. States that yesterday she began experiencing a productive cough with green sputum, chest pain associated with cough, body aches, headaches, and fatigue. States that she also experienced a fever yesterday at 101. She has been taking Mucinex with minimal relief of symptoms. She denies shortness of breath, difficulty breathing, peripheral edema, history of DVT/PE. Denies known sick contacts however does work in [employer] industry. - Related Data Previous Rx's Medication Instructions Recorded HYDROcodone/APAP 5-325MG [[place] 1 tab PO Q6HR PRN 3 Days #12 tab 06/03/20 5-325] Allergies Allergy/AdvReac Type Severity Reaction Status Date / Time latex AdvReac Itching Verified 03/29/24 07:19 simvastatin [From Zocor] AdvReac Unknown Verified 03/29/24 07:19 tramadol AdvReac Nausea & Verified 03/29/24 07:19 Vomiting Review of Systems ROS Statement: Those systems with pertinent positive or pertinent negative responses have been documented in the HPI. ROS Other: All systems not noted in ROS Statement are negative. Past Medical History Past Medical History: Thyroid Disorder Additional Past Medical History / Comment(s): Brain aneurysm. History of Any Multi-Drug Resistant Organisms: None Reported Additional Past Surgical History / Comment(s): 2016 brain aneurysm Smoking Status: Never smoker Past Alcohol Use History: None Reported Past Drug Use History: None Reported General Exam Limitations: no limitations General appearance: alert, in no apparent distress Eye exam: Present: normal appearance, PERRL, EOMI. Absent: scleral icterus, conjunctival injection, periorbital swelling Expanded Mouth exam: Present: normal external inspection, tongue normal. Absent: muffled voice Throat exam: other (posterior oropharynx erythema) Neck exam: Present: normal inspection. Absent: tenderness, meningismus, lymphadenopathy Respiratory exam: Present: normal lung sounds bilaterally. Absent: respiratory distress, wheezes, rales, rhonchi, stridor Cardiovascular Exam: Present: regular rate, normal rhythm, normal heart sounds. Absent: systolic murmur, diastolic murmur, rubs, gallop, clicks GI/Abdominal exam: Present: soft, normal bowel sounds. Absent: distended, tenderness, guarding, rebound, rigid Extremities exam: Present: normal inspection, full ROM, normal capillary refill. Absent: tenderness, pedal edema, joint swelling, calf tenderness Course Vital Signs 03/29/24 03/29/24 03/29/24 07:17 07:50 08:38 Temperature 99.2 F 99.3 F 99.3 F Pulse Rate 97 86 Respiratory 20 20 Rate Blood Pressure 114/72 120/76 O2 Sat by Pulse 98 97 Oximetry Medical Decision Making - Medical Decision Making Was pt. sent in by a medical professional or institution (, PA, INVESTOR, urgent care, hospital, or half-way...) When possible be specific @ -[No] Did you speak to anyone other than the patient for history (EMS, parent, family, police, friend...)? What history was obtained from this source @ -[No] Did you review nursing and triage notes (agree or disagree)? Why? @ -[I reviewed and agree with nursing and triage notes] Were old charts reviewed (outside hosp., previous admission, EMS record, old EKG, old radiological studies, urgent care reports/EKG's, half-way records)? Report findings @ -[No old charts were reviewed] Differential Diagnosis (chest pain, altered mental status, abdominal pain women, abdominal pain men, vaginal bleeding, weakness, fever, dyspnea, syncope, headache, dizziness, GI bleed, back pain, seizure, CVA, palpatations, mental health, musculoskeletal)? @ -COVID 19, RSV, influenza, pneumonia, acute bronchitis, URI, this list is not all inclusive EKG interpreted by me (3pts min.). @ -none X-rays interpreted by me (1pt min.). @ -Chest x-ray no acute cardiopulmonary process or disease CT interpreted by me (1pt min.). @ -[None done] U/S interpreted by me (1pt. min.). @ -[None done] What testing was considered but not performed or refused? (CT, X-rays, U/S, labs)? Why? @ -[None] What meds were considered but not given or refused? Why? @ -[None] Did you discuss the management of the patient with other professionals (professionals i.e. Dr., PA, INVESTOR, lab, RT, psych nurse, case management social worker, cocoa bean roaster, teacher, corrections officer, home health care case manager)? Give summary @ -[No] Was smoking cessation discussed for >3mins.? @ -[No] Was critical care preformed (if so, how long)? @ -[No] Were there social determinants of health that impacted care today? How? (Homelessness, low income, unemployed, alcoholism, drug addiction, transportation, low edu. Level, literacy, decrease access to med. care, care home, rehab)? @ -[No] Was there de-escalation of care discussed even if they declined (Discuss DNR or withdrawal of care, Hospice)? DNR status @ -[No] What co-morbidities impacted this encounter? (DM, HTN, Smoking, COPD, CAD, Cancer, CVA, ARF, Chemo, Hep., AIDS, mental health diagnosis, sleep apnea, morbid obesity)? @ -[None] Was patient admitted / discharged? Hospital course, mention meds given and route, prescriptions, significant lab abnormalities, going to OR and other pertinent info. @ -Discharge. 78-year-old female presented with URI symptoms. Vitals are stable. Patient is positive for influenza A. Recommend she continue Tylenol Motrin as needed for body aches addition to rest and increasing fluids. Chest x-ray unremarkable. Discussed with Dr. Beach Undiagnosed new problem with uncertain prognosis? @ -[No] Drug Therapy requiring intensive monitoring for toxicity (Heparin, Nitro, Insulin, Cardizem)? @ -[No] Were any procedures done? @ -[No] Diagnosis/symptom? @ -Influenza A Acute, or Chronic, or Acute on Chronic? @ -Acute Uncomplicated (without systemic symptoms) or Complicated (systemic symptoms)? @ -uncomplicated Side effects of treatment? @ -[No] Exacerbation, Progression, or Severe Exacerbation? @ -[No] Poses a threat to life or bodily function? How? (Chest pain, USA, AR, pneumonia, PE, COPD, DKA, ARF, appy, cholecystitis, CVA, Diverticulitis, Homicidal, Suicidal, threat to staff... and all critical care pts) @ -[No] - Lab Data Lab Results 03/29/24 Range/Units 07:44 Influenza Type A (PCR) Detected A (Not Detectd) Influenza Type B (PCR) Not Detected (Not Detectd) RSV (PCR) Not Detected (Not Detectd) SARS-CoV-2 (PCR) Not Detected (Not Detectd) Disposition Clinical Impression: Influenza A Disposition: HOME SELF-CARE Condition: Good Instructions (If sedation given, give patient instructions): Influenza (ED) Additional Instructions: Please return to the Emergency Department if symptoms worsen or any other concerns. Is patient prescribed a controlled substance at d/c from ED?: No Referrals: Jessica Chaparro DO [Primary Care Provider] - 1-2 days Time of Disposition: 08:36
[2024-03-29 07:51] VITALS: TEMP 99.3
--- NOTE | 2024-03-29 08:03 | XR ---
Chest, 2 view. HISTORY: Cough. COMPARISON: TECHNIQUE: PA and lateral views the chest are obtained. FINDINGS: The lungs are clear and there is no consolidative or interstitial opacity. There is no pleural effusion or pneumothorax. The heart, pulmonary vasculature, mediastinum and roxy appear normal. There is a PLANT TECHNICIAN/CONTROL ROOM OPERATOR shunt catheter. There is an IVC filter. There are posterior changes in the left humeral head. IMPRESSION: No acute cardiopulmonary disease. [facility], , 03/29/2024 8:01 AM
[2024-03-29 08:44] VITALS: BP 120/76; PULSE 86
== END 2024-03-29 08:44 | disposition home or self-care (01) ==
LOC: EC 07:15
DX: J10.1 Influenza due to other identified influenza virus with other respiratory manifestations (principal); Z88.5 Allergy status to narcotic agent; Z91.040 Latex allergy status; Z88.8 Allergy status to other drugs, medicaments and biological substances
CPT/HCPCS: 71046; 87636; 99283

== ENCOUNTER → 2024-08-07 | Outpatient (CLI) | payer MEDICARE ==
--- NOTE | 2024-08-07 11:46 | MM ---
Reason for Exam: Screening (asymptomatic). Last mammogram was performed 1 year(s) and 1 month(s) ago. Patient History: Menarche at age 12. First Full-Term at age 20. Postmenopausal. Estrogen, from age 48 until age 58. Progesterone, from age 48 until age 58. 1976, Excisional Biopsy on the Right side. Sister had breast cancer, age 73. Risk Values: Yumi 5 year model risk: 4.2%. NCI Lifetime model risk: 7.9%. Prior Study Comparison: 05/20/2021 Bilateral Screening Mammogram, [facility]. 07/07/2022 Bilateral MG 3D screening mammo w/cad, [facility]. 07/09/2023 Bilateral MG 3D screening mammo w/cad, [facility]. Tissue Density: The breasts are almost entirely fatty. Findings: Analyzed By CAD. Right breast: There is no suspicious group of microcalcifications or new suspicious mass. Left breast: There is no suspicious group of microcalcifications or new suspicious mass. Overall Assessment: Negative, BI-RAD 1 Management: Screening Mammogram of both breasts in [address] [facility] will attempt to contact patient to return for supplemental views and ultrasound if indicated. Patient should continue monthly self-breast exams. A clinical breast exam by your physician is recommended on an annual basis. This exam should not preclude additional follow-up of suspicious palpable abnormalities. Note on Yumi scores and lifetime risk: 1. A Yumi score greater than 3% is considered moderate risk. If this is the case, consider specialist referral to assess eligibility for a risk reducing agent. 2. If overall lifetime risk for the development of breast cancer is 20% or higher, the patient may qualify for future screening with alternating mammogram and breast MRI. [facility], , 08/07/2024 11:43 AM. Electronically signed and approved by: Julius Richter DO
== END | disposition home or self-care (01) ==
LOC: RADMAMWWP 09:46
PROVIDERS: ATTEND Family Medicine
DX: Z12.31 Encounter for screening mammogram for malignant neoplasm of breast (principal); R92.313 Mammographic fatty tissue density, bilateral breasts; Z80.3 Family history of malignant neoplasm of breast; Z78.0 Asymptomatic menopausal state
CPT/HCPCS: 77063; 77067